=== PATIENT | female | born 1985 | race Caucasian/White ===

== ENCOUNTER 2022-04-09 09:07 | Emergency (ER) | payer BC, SELFPAY ==
[2022-04-09 09:27] VITALS: BP 110/74; PULSE 100; TEMP 37.2; O2SAT 99; BMI 28.3
--- NOTE | 2022-04-09 09:39 | ED.NAVMDI ---
HPI - Nausea/Vomiting/Diarrhea General Chief complaint: Diarrhea Stated complaint: Covid + Time Seen by Provider: 04/09/22 09:34 History of Present Illness HPI Narrative: This 36-year-old female comes in reporting persistent diarrhea over the past couple days. She has also had some nausea and vomiting. She was diagnosed positive for COVID a couple days ago. She states that she does have an occasional cough but the diarrhea and vomiting or the more prominent symptoms for her COVID infection. She does report some lightheadedness. She arrives with borderline tachycardia but otherwise has normal vital signs. She does report some chills over these past couple days. Related Data Previous Rx's Medication Instructions Recorded ondansetron HCl 4 mg tablet 4 mg PO Q6H #20 tabs 04/09/22 Allergies Allergy/AdvReac Type Severity Reaction Status Date / Time No Known Drug Allergies Allergy Verified 04/09/22 09:30 Review of Systems Status of ROS: Reports: 10 or more systems reviewed and unremarkable except as noted in History and below Narrative: Constitutional: She has had some chills. Eyes: No discharge. No vision changes. HENT: No congestion, no sore throat, no ear pain. Cardiovascular: No chest pain, no palpitations. Respiratory: No shortness of breath, no wheezes. Occasional cough. Gastrointestinal: No abdominal pain. Diarrhea with occasional nausea and vomiting. Genitourinary: No dysuria, no hematuria. Musculoskeletal: Normal range of motion. Skin: No rashes, no pruritis. Neurological: No dizziness, weakness, sensory change, speech change. Endo/Heme/Allergies: No bruising or bleeding. No polydipsia. Pysch: no suicidality, no anxiety, no insomnia. All other systems reviewed and are negative. PFSH PFSH Social History Smoking Status: Never smoker Do you use any of these nicotine containing products: None How often do you have a drink containing alcohol: never AUDIT-C Alcohol total score: 0 Non-prescribed substance use: denies use Exam Narrative: Exam Narrative: Constitutional: Well-developed, well-nourished, no acute distress. HEENT: Normocephalic, atraumatic. Neck: Normal range of motion. Nontender. Supple. Heart: Regular. No murmurs. Borderline tachycardia. Intact distal pulses. Lungs: Clear to auscultation. No chest discomfort. No wheezes, rhonchi, or rales. Abdomen: Normal bowel sounds. Nontender. No rebound tenderness. Genitalia: Deferred. Back: No midline tenderness. Normal range of motion. Extremities: Normal range of motion. No injury. Skin: Intact. No rash. Warm. No erythema or pallor. Neurologic: No altered sensation. No weakness. Alert and oriented. Psychiatric: No suicidality. No anxiety or depression. No insomnia. Nursing notes and vitals signs are reviewed. Const: Vital Signs, click to edit/add: Vital Signs - 24 hr 04/09/22 09:27 04/09/22 10:44 Temperature 99.0 F Pulse Rate [Right Pulse Oximeter] 100 98 Respiratory Rate 18 Blood Pressure [Ri ght Upper Arm] 110/74 Pulse Oximetry 99 Oxygen Delivery Me thod Room Air Course Vital Signs Vital signs: Initial Vital Signs Temperature 99.0 F 04/09/22 09:27 Temperature Source Temporal Artery Scan 04/09/22 09:27 Pulse Rate 100 04/09/22 09:27 Blood Pressure 110/74 04/09/22 09:27 Blood Pressure Mean 86 04/09/22 09:27 Blood Pressure Position Sitting 04/09/22 09:27 Pulse Oximetry 99 04/09/22 09:27 Oxygen Delivery Method 04/09/22 09:27 Vital Signs Temperature 99.0 F 04/09/22 09:27 Pulse Rate 100 04/09/22 09:27 Blood Pressure 110/74 04/09/22 09:27 Pulse Oximetry 99 04/09/22 09:27 Oxygen Delivery Method 04/09/22 09:27 Temperature 99.0 F 04/09/22 09:27 Pulse Rate 98 04/09/22 10:44 Respiratory Rate 18 04/09/22 10:44 Blood Pressure 110/74 04/09/22 09:27 Pulse Oximetry 99 04/09/22 09:27 Oxygen Delivery Method 04/09/22 09:27 MDM - Nausea/Vomiting/Diarrhea MDM Narrative Medical decision making narrative: This patient had a positive COVID test a couple days ago and states that she has had primary symptoms of diarrhea and some vomiting related to this. She states that she has had diarrhea a couple times an hour through most of the last day or 2. She does arrive with borderline tachycardia. An IV was established where she received a L of normal saline and 4 mg of Zofran. Lab results returned with reassuring findings. Patient feels better and has not had any further episodes of nausea, vomiting, or diarrhea. She received a prescription for Zofran and I encouraged her to use Imodium as needed also. Lab Data Labs: Lab Results 04/09/22 04/09/22 Range/Units 10:12 10:12 WBC 12.23 H (4.50-11.00) K/uL RBC 5.32 H (4.00-5.20) m/uL Hgb 15.7 (12.0-16.0) gm/dL Hct 46.6 (33.0-51.0) % MCV 88 (80-100) fL MCH 30 (26-34) pg MCHC 34 (32-36) gm/dL RDW Coeff of Mikey 13.0 (11.5-15.5) % Plt Count 198 (140-440) K/uL Neut % (Auto) 85.1 H (42.0-72.0) % Lymph % (Auto) 8.3 L (20-44) % [place] % (Auto) 6.3 (0.0-11.0) % Eos % (Auto) 0.0 (0.0-7.0) % Baso % (Auto) 0.1 (0.0-3.0) % Neut # (Auto) 10.40 H (1.7-7.0) K/uL Lymph # (Auto) 1.00 (0.90-2.90) K/uL [place] # (Auto) 0.80 (0.00-0.90) K/UL Eos # (Auto) 0.00 (0.00-0.50) K/uL Baso # (Auto) 0.00 (0.00-0.30) K/uL Abs Immat Gran (auto) 0.00 (0.00-0.30) K/uL Imm/Tot Granulo (auto) 0.2 % Sodium 138 (135-149) mmol/L Potassium 3.2 L (3.6-5.1) mmol/L Chloride 103 (96-114) mmol/L Carbon Dioxide 24 (20-32) mmol/L BUN 8 (5-24) mg/dL Creatinine 0.7 (0.5-1.5) mg/dL Estimated Creat Clear 100.94 Estimated GFR 116 ml/min Glucose 102 (60-115) mg/dL Calcium 8.9 (8.4-10.6) mg/dL Discharge Plan Discharge Clinical Impression: Nausea vomiting and diarrhea, COVID-19 Patient Disposition: Home, Self-Care Condition: Improved Additional Instructions: Take medication as needed and indicated. Use Imodium as needed and directed for managing diarrhea. Follow up with MD or return if worsening. Prescriptions: New ondansetron HCl 4 mg tablet 4 mg PO Q6H Qty: 20 0RF Follow Up/Referrals: Stacie García MD [Primary Care Provider] - Stand Alone Forms: YesVideo Info Instructions
[2022-04-09 10:23] LABS: Basophils Percent Auto 0.1 % (0.0-3.0); Hematocrit 46.6 % (33.0-51.0); Hemoglobin* 15.7 gm/dL (12.0-16.0); Immature Granulocytes Pct Auto 0.2 %; Lymphocytes Percent Auto 8.3 % (20-44); Mean Corpuscular HGB Conc 34 gm/dL (32-36); Mean Corpuscular Hemoglobin 30 pg (26-34); Mean Corpuscular Volume 88 fL (80-100); Monocytes Percent Auto 6.3 % (0.0-11.0); Neutrophils Percent Auto 85.1 % (42.0-72.0); Platelet Count* 198 K/uL (140-440); Red Blood Count 5.32 m/uL (4.00-5.20); White Blood Count* 12.23 K/uL (4.50-11.00)
[2022-04-09] MEDS: ONDANSETRON 2 MG/ML inj 4 MG IVP (10:38)
[2022-04-09] MEDS: 0.9 % SODIUM CHLORIDE 1000 ml 1,000 ML IV (10:38)
[2022-04-09 10:44] VITALS: PULSE 98; RESP 18
[2022-04-09 10:45] LABS: Slide Review Reflex No
[2022-04-09 10:47] LABS: Chloride* 103 mmol/L (96-114); Potassium* 3.2 mmol/L (3.6-5.1); Sodium* 138 mmol/L (135-149)
[2022-04-09 10:50] LABS: Carbon Dioxide* 24 mmol/L (20-32); Creatinine* 0.7 mg/dL (0.5-1.5); Est. Creatinine Clearance* 100.94; Estimated Glomerular Filt Rate 116 ml/min
[2022-04-09 10:51] LABS: Blood Urea Nitrogen* 8 mg/dL (5-24); Calcium* 8.9 mg/dL (8.4-10.6); Glucose* 102 mg/dL (60-115)
[2022-04-09 12:20] VITALS: BP 120/74; PULSE 92; RESP 18; O2SAT 96
== END 2022-04-09 12:21 | disposition home or self-care (01) ==
PROVIDERS: Emergency Provider Emergency Medicine Emergency Medical Services; PCP Internal Medicine
DX: U07.1 COVID-19 (principal)
CPT/HCPCS: 36415; 80048; 85025; 96374; 99284; J2405; J7030

== ENCOUNTER 2022-04-13 15:06 | Outpatient (CLI) | payer BC, SELFPAY ==
[2022-04-13 17:59] LABS: CDIFFEPI 027 PRESUMPTIVE NEGATIVE (Negative)
[2022-04-13 18:51] LABS: C.Difficile POSITIVE (Negative)
== END 2022-04-13 15:07 | disposition home or self-care (01) ==
PROVIDERS: PCP Internal Medicine; Visit Provider Internal Medicine
DX: R19.7 Diarrhea, unspecified (principal)
CPT/HCPCS: 87493

== ENCOUNTER 2022-07-18 06:15 | Day surgery (SDC) | payer BC, SELFPAY ==
[2022-07-18] VITALS (12 sets, daily range): BP systolic 97–123; BP diastolic 57–86; PULSE 54–86; RESP 16–18; TEMP 36.4–36.9; O2SAT 98–100; BMI 29.9
[2022-07-18 06:46] LABS: Ur HCG Qualitative* Negative (Negative)
[2022-07-18] MEDS: LACTATED RINGERS 1000 ML 1,000 ML 100 ML IV (07:13)
[2022-07-18] MEDS: SODIUM CHLORIDE 0.9 % (FLUSH) 10 ML SYRINGE IVF (07:14)
--- NOTE | 2022-07-18 07:19 | W.ANESCHARGE ---
Anesthesia Charges Start Date/Time Anesthesia Start Date: 07/18/22 Anesthesia Start Time: 07:27 Stop Date/Time Anesthesia Stop Date: 07/18/22 Anesthesia Stop Time: 08:30
--- NOTE | 2022-07-18 07:32 | P.PCN_ITS ---
Procedure Note Time Seen by Provider: 07:32 Date Seen: 07/18/22 Date of procedure: 07/18/22 Will [facility] bill your pro fee for this procedure?: Yes Procedure: Preoperative diagnosis: 33-year-old with undesired fertility. Postoperative diagnosis: Same. Procedure: Nexplanon removal, Laparoscopic bilateral salpingectomy Anesthesia: General endotracheal, local Surgeon: Elissa Schwarz MD Director Of Officiating: EVAN Montague EBL: 15 mL Urine output: 50 mL clear urine IV fluid: 900 ml Specimen: Bilateral fallopian tubes to pathology. Findings: On exam under anesthesia: The uterus was anteverted, less than 8 week size, mobile, without masses or nodularity palpable. Adnexa were without mass or fullness bilaterally. The uterus sounded to 9 cm. On laparoscopy: The uterus, bilateral fallopian tubes and ovaries all appeared normal. There was an ovulation cyst on the patient's right ovary. There was a small inguinal hernia on the right. Appendix, gallbladder and liver edge appeared normal. Procedure: Stacie was taken to the operating room where general anesthetic was found to be adequate. She was placed in the dorsal lithotomy position and an exam under anesthesia was performed with findings stated above. She was then prepped and draped in a normal sterile manner. A Jurado catheter was then placed. Her left arm was placed in a lateral 90 degree position. The Nexplanon device was marked with a skin marking pen. The area was prepped with Betadine. 2 mL of 1% lidocaine plain were injected along the Nexplanon device. A 3 mm vertical incision was made at the distal edge of the device. A small Gracia clamp was used to grasp the edge of the Nexplanon device. The capsule around the device was removed with the scalpel and the Nexplanon removed without difficulty. The skin was reapproximated with Exofin adhesive and a dressing applied. Attention was turned to performing the laparoscopic bilateral salpingectomy. A bivalve speculum was then placed in the vaginal canal to visualize the cervix. The anterior lip of the cervix was grasped with an a long Allis clamp. The cervix was dilated to Hegar 6. Uterus was sounded to 8 cm. A Comsenz uterine manipulator was then placed. Attention was then turned to performing the laparoscopic portion of the procedure. All incisions were injected with 0.5% Marcaine prior to incision. A horizontal 5 mm supra-umbilical, incision, was made and a 5 mm trocar placed under direct visualization with the laparoscope. The abdomen was then insufflated with carbon dioxide gas to a pressure of 15 mm of mercury. To bilateral lower quadrant trocars were then placed under direct visualization. Both were placed approximately 3-4 finger breaths medial to the ischial crests. The right trocar was 5 mm the left trocar was 5 mm. A diagnostic laparoscopy was then performed with findings stated above. The left fallopian tube was grasped with a sliding grasper. The left fallopian tube was removed from the broad ligament using the Ligasure dissecting forceps starting at the fimbriated end of the tube. Sequential pedicles were then formed to the level of the cornua. The tube was then removed at the cornua and removed from the abdomen through the 11 mm port. The right fallopian tube was removed in a similar manner. Excellent hemostasis was noted of all pedicles. The trocars were then removed under direct visualization. The CO2 gas was allo wed to escape the infraumbilical port prior to its removal. All incisions were reapproximated using 4-0 Monocryl in a running subcuticular manner. LiquiBand skin adhesive was then applied and adhesive dressings applied over each incision. The uterine manipulator and Jurado catheter were removed. The patient tolerated this procedure well. Sponge, lap and instrument counts were correct x2 at the end of the procedure and the patient was taken to the recovery area in stable condition. Surgeon: Elissa Schwarz MD
--- NOTE | 2022-07-18 07:51 | SUR.PREOP ---
Patient provided home covid negative results to RN.
[2022-07-18] MEDS: BUPIVACAINE 0.5% 30 ML INJECTION (08:12)
--- NOTE | 2022-07-18 08:31 | W.ANESCHARGE ---
Anesthesia Charges Start Date/Time Anesthesia Start Date: 07/18/22 Anesthesia Start Time: 07:27 Stop Date/Time Anesthesia Stop Date: 07/18/22 Anesthesia Stop Time: 08:30
[2022-07-18] MEDS: ONDANSETRON 2 MG/ML inj 4 MG IVP (08:39)
== END 2022-07-18 10:15 | disposition home or self-care (01) ==
PROVIDERS: PCP Internal Medicine; Visit Provider Obstetrics & Gynecology
PROC: (CPT 58661; principal; 2022-07-18 07:15)
DX: Z30.2 Encounter for sterilization (principal); Z45.89 Encounter for adjustment and management of other implanted devices
CPT/HCPCS: 58661; 11982; 00790; 00851; 81025; 88302; J0330; J1100; J1885; J2405; J2704; J2710; J3010; J3490; J7120

== ENCOUNTER 2023-01-09 08:18 | Outpatient (CLI) | payer BC, SELFPAY ==
--- OUTSIDE RECORDS SUMMARY | 2023-01-10 01:25 | XMS_ITS | Continuity of Care Document ---
Author Name Unknown Organization [facility] Address [address] [place] [id number] Phone Care Team Providers Care [place] Representative Name Role Phone Will MD MOYA, Farshad Scanlon Unavailabl e Procedures Procedure Date Drug Urine Toxology With Chromatography Drug test def 1-7 classes OFFICE/OUTPATIENT VISIT, [facility] Advance Directives Directive Yes / No Effective Date File Name No Information Encounters Encounter Description Practice Location Reason(s) For Visit Diagnoses Date Provider Providers Copied on Encounter [facility], [address] [place] [address], [id number], [place] tel:[phone] [facility] No Information Ash Yen. [address] [place] [address], [id number], [place]. tel:[phone] [facility], [address] [place] [address], [id number], [place] tel:[phone] [facility] No Information Janneth Ruth. [facility], [place], [place], [id number], [place]. tel:[phone] Referring Provider: Farshad Deras, [address] [place] [address], [id number] . tel:[phone] OFFICE/OUTPAT IENT VISIT, [facility], [address] [place] [address] [place], [id number], [place] tel:[phone] [facility] [place] Back Pain (chief complaint) Chronic pain syndromeLow back painPain in thoracic spineOther exterminator helper termite (current) drug therapy Janneth Ruth. [address], [place], [place], [id number], [place]. tel:[phone] Referring Provider: Farshad Deras, [address] [facility] [place], [address] . tel:[phone] Family History Family Member Type Diagnosis Age At Onset Father Problem knee pain Payers Payer name Insurance type Covered alliance party ID Lorena finch(s) [facility] [id number] Social History Type Description Quantity Date Captured Comments Sex Female Smoking Status No Information Chief Complaint And Reason For Visit No Information Reason For Referral Reason For Referral No Information History Of Present Illness Encounter Date Complaint History Of Prese nt Illness Back Pain (comments) Stacie rosario s a 34 y/o female here with chronic low back pain. Her pain began 16 years ago after a snow boarding accident and injuring her tailbone. It gradually worsened throughout the years taking care of her three sons.She trialled PT about 15 years ago with [facility] and notes it did not provide much relief. She has not had any injections or imaging done.She was previously certified for medical cannabis with [facility]. She would use tangerine and cobalt strain from [facility]. She has trialled cyclobenzaprine which provides significant relief but makes her drowsy. She will take this sparingly with severe flares. She is interested in medical cannabis recertification. Back Pain Duration: chroni c. The problem is worsening. It occurs persistently. Location of pain is lower back.The patient describes the pain as an ache. Symptoms are aggravated by ascending stairs, bending, changing positions, daily activities, defecation, descending stairs, lifting, lying/rest, standing, twisting and walking. Symptoms are relieved by heat, ice, lying down and rest. Functional Status Date Functional Assessmen t No Information Instructions Date Instruction Additional Infor mation No Information Assessments Type Assessment Date No Information Patient Care Teams Name Effective Dates (start - stop) Status Members No Information
== END 2023-01-09 08:19 | disposition home or self-care (01) ==
LOC: NFLDREF 01-10 01:23
PROVIDERS: PCP Internal Medicine; Referring Provider Internal Medicine; Visit Provider Physician Assistant
DX: Z11.3 Encounter for screening for infections with a predominantly sexual mode of transmission (principal)
CPT/HCPCS: 86592; 86703; 86803; 87340

== ENCOUNTER 2024-08-19 13:33 | Outpatient (CLI) | payer BC, SELFPAY ==
[2024-08-22 10:37] LABS: HPV Source Cervix; HPV, High Risk by TMA Not Detected
== END 2024-08-19 13:34 | disposition home or self-care (01) ==
PROVIDERS: PCP Internal Medicine; Visit Provider Physician Assistant
DX: Z12.4 Encounter for screening for malignant neoplasm of cervix (principal); Z11.51 Encounter for screening for human papillomavirus (HPV)
CPT/HCPCS: 87624; 87625; 88141; 88142

== ENCOUNTER 2024-09-19 08:30 | Outpatient (CLI) | payer BC, SELFPAY | END 2024-09-19 08:31 | disposition home or self-care (01) | LOC: NFLDREF 09-25 11:05 | PROVIDERS: PCP Internal Medicine; Referring Provider Internal Medicine; Visit Provider Physician Assistant | DX: Z13.6 Encounter for screening for cardiovascular disorders (principal); Z13.1 Encounter for screening for diabetes mellitus; Z13.29 Encounter for screening for other suspected endocrine disorder | CPT/HCPCS: 80061; 82947; 84443 ==